=== PATIENT | female | born 1980 | race Asian ===

== ENCOUNTER 2021-11-02 23:38 | Inpatient (IN) | payer OTHER, MEDICAID ==
[~2021-11-02] VITALS: Ht 162.6 cm; Wt 70.3 kg
[2021-11-03] MEDS ORDERED: HTN MED PO (00:12)
[2021-11-03] MEDS ORDERED: ATOR10TA84 PO (00:12)
[2021-11-03 00:24] LABS: BASOPHILS % (AUTO) 0.5 % (0.0-2.0); EOSINOPHILS % (AUTO) 0.6 % (1.0-6.0); HEMATOCRIT 37.8 % (36-46); HEMOGLOBIN 12.3 g/dL (12.0-16.0); LYMPHOCYTES # (AUTO) 2.2 K/uL (1.0-4.8); LYMPHOCYTES % (AUTO) 17.4 % (22.0-44.0); MEAN CORPUSCULAR HEMOGLOBIN 26.4 pg (26.0-34.0); MEAN CORPUSCULAR HGB CONC 32.6 G/dL (31.0-37.0); MEAN CORPUSCULAR VOLUME 81 fL (80-100); MONOCYTES % (AUTO) 7.7 % (2.0-9.0); NEUTROPHILS # (AUTO) 9.3 K/uL (1.8-7.7); NEUTROPHILS % (AUTO) 73.8 % (40.0-70.0); PLATELET COUNT (AUTO) 344 K/uL (150-450); RED BLOOD CELL COUNT(AUTO) 4.68 MIL/uL (4.00-5.20); RED CELL DISTRIBUTION WIDTH 14.4 % (11.5-14.5)
[2021-11-03 00:33] LABS: ANION GAP 8 mmol/L (8-16); CALCIUM, TOTAL 8.6 mg/dL (8.8-10.5); CARBON DIOXIDE 25 mmol/L (22-29); CHLORIDE 106 mmol/L (98-107); GLUCOSE,RANDOM 125 mg/dL (70-110); POTASSIUM 3.6 mmol/L (3.5-5.1); SODIUM SERUM 139 mmol/L (136-145); UREA NITROGEN, BLOOD 12 mg/dL (7-18)
[2021-11-03 00:44] LABS: ALANINE AMINOTRANSFERASE 82 U/L (12-78); ALBUMIN 3.6 g/dL (3.4-5.0); ALKALINE PHOSPHATASE 74 U/L (46-116); ASPARTATE AMINOTRANSFERASE 95 U/L (15-37); BILIRUBIN,TOTAL 0.4 mg/dL (0.1-1.0); HCG,QUANTITATIVE < 1 mIU/mL (0-6); TOTAL PROTEIN, SERUM 7.6 g/dL (6.4-8.2)
[2021-11-03 00:50] LABS: GLOMERULAR FILTR. RATE CALC > 60 mL/min (>60)
[2021-11-03 00:51] LABS: GLUCOSE,POINT OF CARE 113 MG/DL (70-110)
[2021-11-03] MEDS ORDERED: LORazepam 1 MG TABLET PO ONE (01:00)
[2021-11-03] MEDS ORDERED: HALOPERIDOL 5 MG TABLET PO ONE (01:00)
[2021-11-03] MEDS ORDERED: DiphenhydrAMINE HCL 50 MG/ML VIAL ONE (01:22)
[2021-11-03] MEDS ORDERED: HALOPERIDOL LACTATE 5 MG/ML VIAL ONE (01:22)
[2021-11-03] MEDS ORDERED: DiphenhydrAMINE HCL 50 MG/ML VIAL IM ONE (01:30)
[2021-11-03] MEDS ORDERED: HALOPERIDOL LACTATE 5 MG/ML VIAL IM ONE (01:30)
[2021-11-03] MEDS ORDERED: LORazepam 2 MG/ML VIAL IM ONE (01:30)
[2021-11-03 01:53] LABS: AMPHET/METH SCREEN,URINE POSITIVE (NEGATIVE); BARBITURATE SCREEN, URINE NEGATIVE (NEGATIVE); BENZODIAZEPINES SCREEN,URINE NEGATIVE (NEGATIVE); CANNABINOID SCREEN,URINE POSITIVE (NEGATIVE); COCAINE SCREEN,URINE NEGATIVE (NEGATIVE); METHADONE SCREEN, URINE NEGATIVE (NEGATIVE); OPIATE SCREEN,URINE NEGATIVE (NEGATIVE); PHENCYCLIDINE SCREEN,URINE NEGATIVE (NEGATIVE)
[2021-11-03 07:17] LABS: COVID AG,FIA SOURCE NASAL SWAB
[2021-11-03] MEDS ORDERED: ZOLPIDEM TARTRATE 10 MG TABLET PO PRN (07:30)
[2021-11-03 10:39] VITALS: BP 138/86
[2021-11-03 11:24] LABS: APPEARANCE,URINE TURBID (CLEAR); BILIRUBIN,URINE NEGATIVE (NEGATIVE); GLUCOSE, URINE (UA) NEGATIVE (NEGATIVE); KETONES,URINE TRACE mg/dL (NEGATIVE); LEUKOCYTE ESTERASE ,URINE SMALL (NEGATIVE); NITRATE,URINE NEGATIVE (NEGATIVE); OCCULT BLOOD,URINE NEGATIVE (NEGATIVE); PH,URINE 5.5 (5.0-8.0); PROTEIN,URINE 30-70 mg/dL (NEGATIVE); UROBILINOGEN,URINE <=1.0 mg/dL (<=1.0)
[2021-11-03 11:32] LABS: BACTERIA,URINE None Seen /HPF (None Seen); RBC,URINE None Seen /HPF (0-2); WBC,URINE 0-2 /HPF (0-5)
[2021-11-03 11:33] LABS: AMORPHOUS SEDIMENT,UR Many /LPF (None Seen)
[2021-11-03 23:47] VITALS: BP 130/79
[2021-11-04] MEDS ORDERED: PNEUMOCOCCAL VACCINE POLYVALENT 0.5 ML VIAL [PPSV23] IM. ONE (04:15)
[2021-11-04] MEDS ORDERED: PETROLATUM,WHITE 28 GM JELLY TP PRN (06:30)
[2021-11-04] MEDS ORDERED: CloNIDine HCL 0.1 MG TABLET PO PRN (06:30)
[2021-11-04] MEDS ORDERED: MAG HYDROX/AL HYDROX/SIMETH ES 30 ML SUSPENSION UDCUP PO PRN (06:30)
[2021-11-04] MEDS ORDERED: MAGNESIUM HYDROXIDE SUSPENSION 30 ML UDCUP PO PRN (06:30)
[2021-11-04] MEDS ORDERED: ACETAMINOPHEN 325 MG TABLET PO PRN (06:30)
[2021-11-04] MEDS ORDERED: ALBUTEROL SULFATE HFA 90 MCG/PUFF 8 GM INHALER IH PRN (06:30)
[2021-11-04] MEDS ORDERED: LOPERAMIDE HCL 2 MG CAPSULE PO PRN (06:30)
[2021-11-04] MEDS ORDERED: BENZOCAINE/MENTHOL LOZENGE PO PRN (06:30)
[2021-11-04] MEDS ORDERED: OMEPRAZOLE 20 MG CAPSULE PO PRN (06:30)
[2021-11-04] MEDS ORDERED: DOCUSATE SODIUM 100 MG CAPSULE PO PRN (06:30)
[2021-11-04] MEDS ORDERED: BACITRACIN 28 GM OINTMENT TP PRN (06:30)
[2021-11-04] MEDS ORDERED: ONDANSETRON HCL 4 MG TABLET PO PRN (06:30)
[2021-11-04 08:00] VITALS: BP 147/90
[2021-11-04] MEDS: LISINOPRIL 10 MG TABLET PO SCH (09:17)
[2021-11-04] MEDS: ATORVASTATIN CALCIUM 10 MG TABLET PO SCH (09:17)
[2021-11-04] MEDS: LORazepam 2 MG TABLET PO PRN (14:38)
[2021-11-04 20:00] VITALS: BP 136/75
[2021-11-05] MEDS: LORazepam 2 MG TABLET PO PRN ×2 (02:06→08:12)
[2021-11-05 06:56] LABS: BASOPHILS % (AUTO) 0.4 % (0.0-2.0); EOSINOPHILS % (AUTO) 2.2 % (1.0-6.0); HEMATOCRIT 38.8 % (36-46); HEMOGLOBIN 12.8 g/dL (12.0-16.0); LYMPHOCYTES # (AUTO) 3.1 K/uL (1.0-4.8); LYMPHOCYTES % (AUTO) 28.9 % (22.0-44.0); MEAN CORPUSCULAR HEMOGLOBIN 26.6 pg (26.0-34.0); MEAN CORPUSCULAR HGB CONC 32.9 G/dL (31.0-37.0); MEAN CORPUSCULAR VOLUME 81 fL (80-100); MONOCYTES # (AUTO) 0.6 K/uL (0.1-1.0); MONOCYTES % (AUTO) 5.9 % (2.0-9.0); NEUTROPHILS # (AUTO) 6.7 K/uL (1.8-7.7); NEUTROPHILS % (AUTO) 62.6 % (40.0-70.0); PLATELET COUNT (AUTO) 335 K/uL (150-450); RED BLOOD CELL COUNT(AUTO) 4.79 MIL/uL (4.00-5.20); RED CELL DISTRIBUTION WIDTH 14.7 % (11.5-14.5)
[2021-11-05 07:28] LABS: ALANINE AMINOTRANSFERASE 62 U/L (12-78); ALBUMIN 3.1 g/dL (3.4-5.0); ALKALINE PHOSPHATASE 66 U/L (46-116); ANION GAP 10 mmol/L (8-16); ASPARTATE AMINOTRANSFERASE 39 U/L (15-37); BILIRUBIN,TOTAL 0.2 mg/dL (0.1-1.0); CALCIUM, TOTAL 8.5 mg/dL (8.8-10.5); CARBON DIOXIDE 27 mmol/L (22-29); CHLORIDE 102 mmol/L (98-107); CHOL/HDL RATIO 2.1 (3.9-5.7); CHOLESTEROL 115 mg/dL (131-200); CREATININE 0.63 mg/dL (0.60-1.30); GLUCOSE,RANDOM 104 mg/dL (70-110); HDL CHOLESTEROL 55 mg/dL (40-60); PHOSPHORUS 3.6 mg/dL (2.5-4.9); POTASSIUM 4.2 mmol/L (3.5-5.1); SODIUM SERUM 139 mmol/L (136-145); THYROID STIMULATING HORMONE 0.48 uIU/mL (0.36-3.74); TOTAL PROTEIN, SERUM 6.4 g/dL (6.4-8.2); UREA NITROGEN, BLOOD 9 mg/dL (7-18)
[2021-11-05 07:54] LABS: GLOMERULAR FILTR. RATE CALC > 60 mL/min (>60); LDL CHOL (CALC.) 49 mg/dL (0-130); TRIGLYCERIDES 54 mg/dL (15-150)
[2021-11-05] MEDS: HALOPERIDOL 5 MG TABLET PO PRN (08:12)
[2021-11-05] MEDS: NICOTINE 21 MG/24 HOUR PATCH TD SCH (08:12)
[2021-11-05] MEDS: LISINOPRIL 10 MG TABLET PO SCH (08:12)
[2021-11-05] MEDS: ATORVASTATIN CALCIUM 10 MG TABLET PO SCH (08:12)
[2021-11-05 09:07] VITALS: BP 137/86
[2021-11-05] MEDS: RisperiDONE 0.5 MG TABLET PO SCH ×2 (12:08→16:41)
[2021-11-05] MEDS: IBUPROFEN 600 MG TABLET PO PRN (20:14)
[2021-11-06 06:39] VITALS: BP 134/78
[2021-11-06] MEDS: LISINOPRIL 10 MG TABLET PO SCH (08:18)
[2021-11-06] MEDS: ATORVASTATIN CALCIUM 10 MG TABLET PO SCH (08:18)
[2021-11-06] MEDS: LORazepam 2 MG TABLET PO PRN (08:18)
[2021-11-06] MEDS: HALOPERIDOL 5 MG TABLET PO PRN (08:18)
[2021-11-06] MEDS: RisperiDONE 0.5 MG TABLET PO SCH ×2 (08:18→17:28)
[2021-11-06] MEDS: NICOTINE 21 MG/24 HOUR PATCH TD SCH (08:18)
[2021-11-06 10:22] VITALS: BP 150/84
[2021-11-06 20:40] VITALS: BP 143/79
[2021-11-07 06:02] VITALS: BP 137/80
[2021-11-07] MEDS: IBUPROFEN 600 MG TABLET PO PRN (07:16)
[2021-11-07] MEDS: LISINOPRIL 10 MG TABLET PO SCH (08:15)
[2021-11-07] MEDS: ATORVASTATIN CALCIUM 10 MG TABLET PO SCH (08:15)
[2021-11-07] MEDS: NICOTINE 21 MG/24 HOUR PATCH TD SCH (08:15)
[2021-11-07] MEDS: RisperiDONE 0.5 MG TABLET PO SCH ×2 (08:35→16:17)
[2021-11-07 09:21] VITALS: BP 172/96
[2021-11-07] MEDS: LORazepam 2 MG TABLET PO PRN (15:48)
[2021-11-07] MEDS ORDERED: DiphenhydrAMINE HCL 50 MG/ML VIAL IM ONE (16:30)
[2021-11-07] MEDS ORDERED: HALOPERIDOL LACTATE 5 MG/ML VIAL IM ONE (16:30)
[2021-11-07] MEDS ORDERED: LORazepam 2 MG/ML VIAL IM ONE (16:30)
[2021-11-07 20:12] VITALS: BP 119/77
[2021-11-08 06:14] VITALS: BP 151/79
[2021-11-08] MEDS: DIVALPROEX SODIUM 500 MG DR TABLET PO SCH ×2 (09:05→20:14)
[2021-11-08] MEDS: LITHIUM CARBONATE 300 MG CAPSULE PO SCH ×2 (09:05→16:26)
[2021-11-08] MEDS: ATORVASTATIN CALCIUM 10 MG TABLET PO SCH (09:06)
[2021-11-08] MEDS: LISINOPRIL 10 MG TABLET PO SCH (09:06)
[2021-11-08] MEDS: NICOTINE 21 MG/24 HOUR PATCH TD SCH (09:06)
[2021-11-08] MEDS: RisperiDONE 3 MG TABLET PO SCH ×2 (09:06→16:26)
[2021-11-08] MEDS ORDERED: HALOPERIDOL LACTATE 5 MG/ML VIAL IM ONE (09:30)
[2021-11-08] MEDS ORDERED: LORazepam 2 MG/ML VIAL IM ONE (09:30)
[2021-11-08] MEDS ORDERED: DiphenhydrAMINE HCL 50 MG/ML VIAL IM ONE (09:30)
[2021-11-08 11:32] VITALS: BP 167/92
[2021-11-08 21:58] VITALS: BP 116/73
[2021-11-09 08:00] VITALS: BP 101/62
[2021-11-09] MEDS: NICOTINE 21 MG/24 HOUR PATCH TD SCH (08:48)
[2021-11-09] MEDS: ATORVASTATIN CALCIUM 10 MG TABLET PO SCH (08:49)
[2021-11-09] MEDS: LITHIUM CARBONATE 300 MG CAPSULE PO SCH ×2 (08:49→16:11)
[2021-11-09] MEDS: DIVALPROEX SODIUM 500 MG DR TABLET PO SCH ×2 (08:49→20:06)
[2021-11-09] MEDS: RisperiDONE 3 MG TABLET PO SCH ×2 (08:49→16:11)
[2021-11-09] MEDS: LISINOPRIL 10 MG TABLET PO SCH (08:50)
[2021-11-09] MEDS: LORazepam 2 MG TABLET PO PRN (17:01)
[2021-11-09] MEDS ORDERED: HALOPERIDOL LACTATE 5 MG/ML VIAL ONE (18:04)
[2021-11-09] MEDS ORDERED: DiphenhydrAMINE HCL 50 MG/ML VIAL ONE (18:04)
[2021-11-09] MEDS ORDERED: LORazepam 2 MG/ML VIAL ONE (18:04)
[2021-11-09] MEDS ORDERED: DiphenhydrAMINE HCL 50 MG/ML VIAL IM ONE (18:30)
[2021-11-09] MEDS ORDERED: HALOPERIDOL LACTATE 5 MG/ML VIAL IM ONE (18:30)
[2021-11-09] MEDS ORDERED: LORazepam 2 MG/ML VIAL IM ONE (18:30)
[2021-11-09 18:55] VITALS: BP 125/74
[2021-11-09] MEDS: IBUPROFEN 600 MG TABLET PO PRN (18:58)
[2021-11-09 20:33] VITALS: BP 130/75
[2021-11-10] MEDS: ATORVASTATIN CALCIUM 10 MG TABLET PO SCH (08:38)
[2021-11-10] MEDS: DIVALPROEX SODIUM 500 MG DR TABLET PO SCH ×2 (08:38→21:03)
[2021-11-10] MEDS: LITHIUM CARBONATE 300 MG CAPSULE PO SCH ×2 (08:38→16:15)
[2021-11-10] MEDS: RisperiDONE 3 MG TABLET PO SCH ×2 (09:58→16:15)
[2021-11-10] MEDS: LISINOPRIL 10 MG TABLET PO SCH (09:59)
[2021-11-10] MEDS: NICOTINE 21 MG/24 HOUR PATCH TD SCH (10:00)
[2021-11-10] MEDS: LORazepam 2 MG TABLET PO PRN (16:15)
[2021-11-10 20:13] VITALS: BP 102/68
[2021-11-11 08:18] VITALS: BP 106/69
[2021-11-11] MEDS: NICOTINE 21 MG/24 HOUR PATCH TD SCH (09:00)
[2021-11-11] MEDS: ATORVASTATIN CALCIUM 10 MG TABLET PO SCH (09:21)
[2021-11-11] MEDS: LISINOPRIL 10 MG TABLET PO SCH (09:21)
[2021-11-11] MEDS: RisperiDONE 3 MG TABLET PO SCH ×2 (09:21→17:13)
[2021-11-11] MEDS: LITHIUM CARBONATE 300 MG CAPSULE PO SCH ×2 (09:21→17:14)
[2021-11-11] MEDS: LORazepam 2 MG TABLET PO PRN ×2 (09:21→14:25)
[2021-11-11] MEDS: DIVALPROEX SODIUM 500 MG DR TABLET PO SCH ×2 (09:22→21:28)
[2021-11-11 11:41] LABS: GLUCOMETER DEV NAME(LOC) POC.BV
[2021-11-11] MEDS: IBUPROFEN 600 MG TABLET PO PRN (14:26)
[2021-11-12] MEDS: NICOTINE 21 MG/24 HOUR PATCH TD SCH (08:14)
[2021-11-12] MEDS: RisperiDONE 3 MG TABLET PO SCH ×2 (08:14→16:12)
[2021-11-12] MEDS: LITHIUM CARBONATE 300 MG CAPSULE PO SCH ×2 (08:14→16:12)
[2021-11-12] MEDS: DIVALPROEX SODIUM 500 MG DR TABLET PO SCH ×2 (08:15→20:04)
[2021-11-12] MEDS: ATORVASTATIN CALCIUM 10 MG TABLET PO SCH (08:15)
[2021-11-12] MEDS: LISINOPRIL 10 MG TABLET PO SCH (08:15)
[2021-11-12 08:34] VITALS: BP 110/64
[2021-11-12 14:01] LABS: LITHIUM 0.88 mmol/L (0.60-1.20)
[2021-11-12 22:25] VITALS: BP 116/73
[2021-11-13] MEDS: DIVALPROEX SODIUM 500 MG DR TABLET PO SCH ×2 (08:24→20:16)
[2021-11-13] MEDS: RisperiDONE 3 MG TABLET PO SCH ×2 (08:24→16:01)
[2021-11-13] MEDS: LITHIUM CARBONATE 300 MG CAPSULE PO SCH ×2 (08:25→16:01)
[2021-11-13] MEDS: LISINOPRIL 10 MG TABLET PO SCH (08:25)
[2021-11-13] MEDS: ATORVASTATIN CALCIUM 10 MG TABLET PO SCH (08:25)
[2021-11-13] MEDS: NICOTINE 21 MG/24 HOUR PATCH TD SCH (08:26)
[2021-11-13 09:00] VITALS: BP 113/67
[2021-11-14] MEDS ORDERED: RISP3TAB63 PO (00:52)
[2021-11-14] MEDS ORDERED: DIVA-112 PO (00:52)
[2021-11-14] MEDS ORDERED: LITH300C3 PO (00:52)
[2021-11-14 04:42] VITALS: BP 99/65
[2021-11-14 08:14] VITALS: BP 118/73
[2021-11-14] MEDS: LISINOPRIL 10 MG TABLET PO SCH (08:33)
[2021-11-14] MEDS: RisperiDONE 3 MG TABLET PO SCH (08:33)
[2021-11-14] MEDS: DIVALPROEX SODIUM 500 MG DR TABLET PO SCH (08:33)
[2021-11-14] MEDS: ATORVASTATIN CALCIUM 10 MG TABLET PO SCH (08:33)
[2021-11-14] MEDS: LITHIUM CARBONATE 300 MG CAPSULE PO SCH (08:33)
[2021-11-14] MEDS: NICOTINE 21 MG/24 HOUR PATCH TD SCH (08:34)
[2021-11-14] MEDS ORDERED: LISI10TA24 PO ×2 (13:11→13:13)
[2021-11-14] MEDS ORDERED: ATOR10TA84 PO (13:13)
== END 2021-11-14 15:40 | disposition home or self-care (01) | DRG 885 ==
LOC: EMS 23:41 → B3A 11-03 10:11
PROVIDERS: ADMIT Psychiatry & Neurology Psychiatry; ATTEND Psychiatry & Neurology Psychiatry
PROC: 3E0234Z Introduction of Serum, Toxoid and Vaccine into Muscle, Percutaneous Approach (ICD-10-PCS; principal; 2021-11-04)
DX: F20.9 Schizophrenia, unspecified (principal); Z20.822 Contact with and (suspected) exposure to COVID-19; E11.9 Type 2 diabetes mellitus without complications; E78.00 Pure hypercholesterolemia, unspecified; I10 Essential (primary) hypertension; F41.9 Anxiety disorder, unspecified; G47.00 Insomnia, unspecified; K59.00 Constipation, unspecified; R74.01 Elevation of levels of liver transaminase levels; F15.10 Other stimulant abuse, uncomplicated; F12.90 Cannabis use, unspecified, uncomplicated; Z72.0 Tobacco use
CPT/HCPCS: 80053; 80061; 80164; 80178; 81001; 82962; 83735; 84100; 84443; 84702; 85025; 90732; 99285; G0480; J1200; J1630; J2060

== ENCOUNTER 2021-11-16 08:56 | Inpatient (IN) | payer MEDICARE, MEDICAID ==
[~2021-11-16] VITALS: Ht 157.5 cm; Wt 70.0 kg
[~2021-11-16 08:56] MED LIST: ATOR10TA84 PO; DIVA-112 PO; LISI10TA24 PO; LITH300C3 PO; RISP3TAB63 PO
[2021-11-16 09:43] LABS: HEMATOCRIT 34.7 % (36-46); HEMOGLOBIN 11.2 g/dL (12.0-16.0); MEAN CORPUSCULAR HEMOGLOBIN 26.2 pg (26.0-34.0); MEAN CORPUSCULAR HGB CONC 32.2 G/dL (31.0-37.0); MEAN CORPUSCULAR VOLUME 81 fL (80-100); RED BLOOD CELL COUNT(AUTO) 4.27 MIL/uL (4.00-5.20); RED CELL DISTRIBUTION WIDTH 14.3 % (11.5-14.5)
[2021-11-16 09:44] LABS: BASOPHILS % (AUTO) 0.4 % (0.0-2.0); EOSINOPHILS % (AUTO) 1.7 % (1.0-6.0); LYMPHOCYTES # (AUTO) 2.6 K/uL (1.0-4.8); LYMPHOCYTES % (AUTO) 17.5 % (22.0-44.0); MONOCYTES # (AUTO) 1.2 K/uL (0.1-1.0); MONOCYTES % (AUTO) 7.8 % (2.0-9.0); NEUTROPHILS # (AUTO) 10.9 K/uL (1.8-7.7); NEUTROPHILS % (AUTO) 72.6 % (40.0-70.0); PLATELET COUNT (AUTO) 239 K/uL (150-450)
[2021-11-16 10:00] LABS: ANION GAP 11 mmol/L (8-16); CALCIUM, TOTAL 8.8 mg/dL (8.8-10.5); CARBON DIOXIDE 25 mmol/L (22-29); CHLORIDE 101 mmol/L (98-107); CREATININE 0.96 mg/dL (0.60-1.30); GLUCOSE,RANDOM 105 mg/dL (70-110); POTASSIUM 4.2 mmol/L (3.5-5.1); SODIUM SERUM 137 mmol/L (136-145); UREA NITROGEN, BLOOD 13 mg/dL (7-18)
[2021-11-16 10:01] LABS: GLOMERULAR FILTR. RATE CALC > 60 mL/min (>60)
[2021-11-16 10:06] LABS: ALANINE AMINOTRANSFERASE 24 U/L (12-78); ALKALINE PHOSPHATASE 62 U/L (46-116); ASPARTATE AMINOTRANSFERASE 28 U/L (15-37); BILIRUBIN,TOTAL 0.3 mg/dL (0.1-1.0); TOTAL PROTEIN, SERUM 6.9 g/dL (6.4-8.2)
[2021-11-16 10:45] LABS: AMPHET/METH SCREEN,URINE POSITIVE (NEGATIVE); BARBITURATE SCREEN, URINE NEGATIVE (NEGATIVE); BENZODIAZEPINES SCREEN,URINE NEGATIVE (NEGATIVE); CANNABINOID SCREEN,URINE POSITIVE (NEGATIVE); COCAINE SCREEN,URINE NEGATIVE (NEGATIVE); METHADONE SCREEN, URINE NEGATIVE (NEGATIVE); OPIATE SCREEN,URINE NEGATIVE (NEGATIVE)
[2021-11-16 10:49] LABS: PHENCYCLIDINE SCREEN,URINE NEGATIVE (NEGATIVE)
[2021-11-16 11:27] LABS: COVID AG,FIA SOURCE NASAL SWAB
[2021-11-16 18:49] VITALS: BP 121/73
[2021-11-16] MEDS ORDERED: PETROLATUM,WHITE 28 GM JELLY TP PRN (20:15)
[2021-11-16] MEDS ORDERED: MAGNESIUM HYDROXIDE SUSPENSION 30 ML UDCUP PO PRN (20:15)
[2021-11-16] MEDS ORDERED: BENZOCAINE/MENTHOL LOZENGE PO PRN (20:15)
[2021-11-16] MEDS ORDERED: BACITRACIN 28 GM OINTMENT TP PRN (20:15)
[2021-11-16] MEDS ORDERED: LOPERAMIDE HCL 2 MG CAPSULE PO PRN (20:15)
[2021-11-16] MEDS ORDERED: CloNIDine HCL 0.1 MG TABLET PO PRN (20:15)
[2021-11-16] MEDS ORDERED: ONDANSETRON HCL 4 MG TABLET PO PRN (20:15)
[2021-11-16] MEDS ORDERED: ALBUTEROL SULFATE HFA 90 MCG/PUFF 8 GM INHALER IH PRN (20:15)
[2021-11-16] MEDS ORDERED: ACETAMINOPHEN 325 MG TABLET PO PRN (20:15)
[2021-11-16] MEDS ORDERED: MAG HYDROX/AL HYDROX/SIMETH ES 30 ML SUSPENSION UDCUP PO PRN (20:15)
[2021-11-16] MEDS ORDERED: -PHARMACY VACCINE NOTE- MISC ONE (20:30)
[2021-11-16] MEDS: DIVALPROEX SODIUM 500 MG DR TABLET PO SCH (21:04)
[2021-11-17] MEDS: LISINOPRIL 10 MG TABLET PO SCH (08:37)
[2021-11-17] MEDS: OMEPRAZOLE 20 MG CAPSULE PO SCH (08:37)
[2021-11-17] MEDS: DIVALPROEX SODIUM 500 MG DR TABLET PO SCH ×2 (08:37→21:44)
[2021-11-17] MEDS: ATORVASTATIN CALCIUM 10 MG TABLET PO SCH (08:37)
[2021-11-17] MEDS: DOCUSATE SODIUM 100 MG CAPSULE PO SCH (08:38)
[2021-11-17 08:41] VITALS: BP 113/66
[2021-11-17] MEDS: HALOPERIDOL 5 MG TABLET PO PRN (10:34)
[2021-11-17] MEDS: LORazepam 2 MG TABLET PO PRN (10:34)
[2021-11-17] MEDS: LITHIUM CARBONATE 300 MG CAPSULE PO SCH (16:51)
[2021-11-17] MEDS: RisperiDONE 3 MG TABLET PO SCH (16:52)
[2021-11-17 21:30] VITALS: BP 118/70
[2021-11-18 08:10] VITALS: BP 114/69
[2021-11-18] MEDS: DOCUSATE SODIUM 100 MG CAPSULE PO SCH (09:23)
[2021-11-18] MEDS: OMEPRAZOLE 20 MG CAPSULE PO SCH (09:23)
[2021-11-18] MEDS: RisperiDONE 3 MG TABLET PO SCH ×2 (09:23→16:42)
[2021-11-18] MEDS: DIVALPROEX SODIUM 500 MG DR TABLET PO SCH ×2 (09:23→20:14)
[2021-11-18] MEDS: LISINOPRIL 10 MG TABLET PO SCH (09:23)
[2021-11-18] MEDS: ATORVASTATIN CALCIUM 10 MG TABLET PO SCH (09:23)
[2021-11-18] MEDS: LITHIUM CARBONATE 300 MG CAPSULE PO SCH ×2 (09:23→16:43)
[2021-11-18] MEDS: LORazepam 2 MG TABLET PO PRN (09:23)
[2021-11-18 16:23] VITALS: BP 112/74
[2021-11-19 08:30] VITALS: BP 130/83
[2021-11-19] MEDS: DIVALPROEX SODIUM 500 MG DR TABLET PO SCH ×2 (08:36→20:29)
[2021-11-19] MEDS: LORazepam 2 MG TABLET PO PRN (08:36)
[2021-11-19] MEDS: OMEPRAZOLE 20 MG CAPSULE PO SCH (08:36)
[2021-11-19] MEDS: LITHIUM CARBONATE 300 MG CAPSULE PO SCH ×2 (08:36→16:36)
[2021-11-19] MEDS: RisperiDONE 3 MG TABLET PO SCH ×2 (08:36→16:36)
[2021-11-19] MEDS: DOCUSATE SODIUM 100 MG CAPSULE PO SCH (08:37)
[2021-11-19] MEDS: LISINOPRIL 10 MG TABLET PO SCH (08:37)
[2021-11-19] MEDS: ATORVASTATIN CALCIUM 10 MG TABLET PO SCH (08:37)
[2021-11-19] MEDS: HALOPERIDOL 5 MG TABLET PO PRN (09:15)
[2021-11-19] MEDS: IBUPROFEN 600 MG TABLET PO PRN (09:15)
[2021-11-19 16:13] VITALS: BP 105/65
[2021-11-20] MEDS: RisperiDONE 3 MG TABLET PO SCH ×2 (08:29→16:18)
[2021-11-20] MEDS: DIVALPROEX SODIUM 500 MG DR TABLET PO SCH ×2 (08:29→20:09)
[2021-11-20] MEDS: IBUPROFEN 600 MG TABLET PO PRN (08:29)
[2021-11-20] MEDS: LITHIUM CARBONATE 300 MG CAPSULE PO SCH ×2 (08:30→16:19)
[2021-11-20] MEDS: ATORVASTATIN CALCIUM 10 MG TABLET PO SCH (08:30)
[2021-11-20] MEDS: OMEPRAZOLE 20 MG CAPSULE PO SCH (08:30)
[2021-11-20] MEDS: DOCUSATE SODIUM 100 MG CAPSULE PO SCH (08:30)
[2021-11-20] MEDS: LISINOPRIL 10 MG TABLET PO SCH (08:30)
[2021-11-20 16:05] VITALS: BP 106/69
[2021-11-20] MEDS: LORazepam 2 MG TABLET PO PRN ×2 (19:19→23:47)
[2021-11-20] MEDS: ZOLPIDEM TARTRATE 10 MG TABLET PO PRN (23:47)
[2021-11-21] MEDS: LITHIUM CARBONATE 300 MG CAPSULE PO SCH ×2 (08:09→16:46)
[2021-11-21] MEDS: ATORVASTATIN CALCIUM 10 MG TABLET PO SCH (08:09)
[2021-11-21] MEDS: OMEPRAZOLE 20 MG CAPSULE PO SCH (08:09)
[2021-11-21] MEDS: DIVALPROEX SODIUM 500 MG DR TABLET PO SCH ×2 (08:09→20:14)
[2021-11-21] MEDS: DOCUSATE SODIUM 100 MG CAPSULE PO SCH (08:09)
[2021-11-21] MEDS: RisperiDONE 3 MG TABLET PO SCH ×2 (08:09→16:46)
[2021-11-21] MEDS: LISINOPRIL 10 MG TABLET PO SCH (08:10)
[2021-11-21 08:29] VITALS: BP 115/77
[2021-11-21] MEDS: ZOLPIDEM TARTRATE 10 MG TABLET PO PRN (20:21)
[2021-11-22 08:40] VITALS: BP 119/81
[2021-11-22] MEDS: RisperiDONE 3 MG TABLET PO SCH ×2 (09:05→15:59)
[2021-11-22] MEDS: LISINOPRIL 10 MG TABLET PO SCH (09:05)
[2021-11-22] MEDS: DIVALPROEX SODIUM 500 MG DR TABLET PO SCH ×2 (09:05→20:08)
[2021-11-22] MEDS: ATORVASTATIN CALCIUM 10 MG TABLET PO SCH (09:05)
[2021-11-22] MEDS: LITHIUM CARBONATE 300 MG CAPSULE PO SCH ×2 (09:05→15:59)
[2021-11-22] MEDS: DOCUSATE SODIUM 100 MG CAPSULE PO SCH (09:06)
[2021-11-22] MEDS: OMEPRAZOLE 20 MG CAPSULE PO SCH (09:06)
[2021-11-22 12:14] LABS: COVID AG,FIA SOURCE NASOPHARYNGEAL
[2021-11-22 16:05] VITALS: BP 112/66
[2021-11-22] MEDS: ZOLPIDEM TARTRATE 10 MG TABLET PO PRN (21:35)
[2021-11-23 08:18] VITALS: BP 109/68
[2021-11-23] MEDS: RisperiDONE 3 MG TABLET PO SCH ×2 (09:18→16:10)
[2021-11-23] MEDS: LISINOPRIL 10 MG TABLET PO SCH (09:18)
[2021-11-23] MEDS: LITHIUM CARBONATE 300 MG CAPSULE PO SCH ×2 (09:18→16:10)
[2021-11-23] MEDS: ATORVASTATIN CALCIUM 10 MG TABLET PO SCH (09:18)
[2021-11-23] MEDS: DIVALPROEX SODIUM 500 MG DR TABLET PO SCH ×2 (09:18→20:03)
[2021-11-23] MEDS: OMEPRAZOLE 20 MG CAPSULE PO SCH (09:20)
[2021-11-23] MEDS: DOCUSATE SODIUM 100 MG CAPSULE PO SCH (09:20)
[2021-11-23 16:22] VITALS: BP 109/76
[2021-11-23] MEDS: HALOPERIDOL 5 MG TABLET PO PRN (16:59)
[2021-11-23] MEDS: LORazepam 2 MG TABLET PO PRN (16:59)
[2021-11-24] MEDS: OMEPRAZOLE 20 MG CAPSULE PO SCH (08:30)
[2021-11-24] MEDS: RisperiDONE 3 MG TABLET PO SCH ×2 (08:30→16:17)
[2021-11-24] MEDS: DIVALPROEX SODIUM 500 MG DR TABLET PO SCH ×2 (08:30→20:39)
[2021-11-24] MEDS: ATORVASTATIN CALCIUM 10 MG TABLET PO SCH (08:30)
[2021-11-24] MEDS: DOCUSATE SODIUM 100 MG CAPSULE PO SCH (08:30)
[2021-11-24] MEDS: LISINOPRIL 10 MG TABLET PO SCH (08:30)
[2021-11-24] MEDS: LITHIUM CARBONATE 300 MG CAPSULE PO SCH ×2 (08:30→16:17)
[2021-11-24 09:43] VITALS: BP 110/72
[2021-11-24] MEDS: HALOPERIDOL 5 MG TABLET PO PRN (16:24)
[2021-11-24] MEDS: LORazepam 2 MG TABLET PO PRN (16:24)
[2021-11-24 16:45] VITALS: BP 112/72
[2021-11-25 08:17] VITALS: BP 153/83
[2021-11-25] MEDS: LORazepam 2 MG TABLET PO PRN (08:18)
[2021-11-25] MEDS: ATORVASTATIN CALCIUM 10 MG TABLET PO SCH (08:18)
[2021-11-25] MEDS: RisperiDONE 3 MG TABLET PO SCH ×2 (08:18→16:35)
[2021-11-25] MEDS: LITHIUM CARBONATE 300 MG CAPSULE PO SCH ×2 (08:18→16:34)
[2021-11-25] MEDS: DOCUSATE SODIUM 100 MG CAPSULE PO SCH (08:18)
[2021-11-25] MEDS: DIVALPROEX SODIUM 500 MG DR TABLET PO SCH ×2 (08:18→20:21)
[2021-11-25] MEDS: OMEPRAZOLE 20 MG CAPSULE PO SCH (08:18)
[2021-11-25] MEDS: LISINOPRIL 10 MG TABLET PO SCH (08:18)
[2021-11-25 16:04] VITALS: BP 110/75
[2021-11-26 00:26] VITALS: BP 118/76
[2021-11-26] MEDS: OMEPRAZOLE 20 MG CAPSULE PO SCH (08:12)
[2021-11-26] MEDS: LISINOPRIL 10 MG TABLET PO SCH (08:12)
[2021-11-26] MEDS: LITHIUM CARBONATE 300 MG CAPSULE PO SCH ×2 (08:12→17:54)
[2021-11-26] MEDS: DIVALPROEX SODIUM 500 MG DR TABLET PO SCH ×2 (08:12→20:06)
[2021-11-26] MEDS: DOCUSATE SODIUM 100 MG CAPSULE PO SCH (08:12)
[2021-11-26] MEDS: RisperiDONE 3 MG TABLET PO SCH ×2 (08:12→17:54)
[2021-11-26] MEDS: ATORVASTATIN CALCIUM 10 MG TABLET PO SCH (08:13)
[2021-11-26 08:54] VITALS: BP 114/76
[2021-11-26] MEDS: LORazepam 2 MG TABLET PO PRN (12:24)
[2021-11-26] MEDS: HALOPERIDOL 5 MG TABLET PO PRN (12:24)
[2021-11-26 16:08] VITALS: BP 133/88
[2021-11-27] MEDS: DIVALPROEX SODIUM 500 MG DR TABLET PO SCH ×2 (08:29→21:04)
[2021-11-27] MEDS: ATORVASTATIN CALCIUM 10 MG TABLET PO SCH (08:29)
[2021-11-27] MEDS: RisperiDONE 3 MG TABLET PO SCH ×2 (08:29→16:11)
[2021-11-27] MEDS: HALOPERIDOL 5 MG TABLET PO PRN ×2 (08:29→16:11)
[2021-11-27] MEDS: LISINOPRIL 10 MG TABLET PO SCH (08:29)
[2021-11-27] MEDS: LITHIUM CARBONATE 300 MG CAPSULE PO SCH ×2 (08:29→16:11)
[2021-11-27] MEDS: LORazepam 2 MG TABLET PO PRN (08:29)
[2021-11-27] MEDS: OMEPRAZOLE 20 MG CAPSULE PO SCH (08:29)
[2021-11-27] MEDS: DOCUSATE SODIUM 100 MG CAPSULE PO SCH (08:30)
[2021-11-27 08:34] VITALS: BP 100/58
[2021-11-27 16:02] VITALS: BP 102/68
[2021-11-28] MEDS: DOCUSATE SODIUM 100 MG CAPSULE PO SCH (08:16)
[2021-11-28] MEDS: ATORVASTATIN CALCIUM 10 MG TABLET PO SCH (08:16)
[2021-11-28] MEDS: LISINOPRIL 10 MG TABLET PO SCH (08:16)
[2021-11-28] MEDS: LORazepam 2 MG TABLET PO PRN ×2 (08:16→16:53)
[2021-11-28] MEDS: DIVALPROEX SODIUM 500 MG DR TABLET PO SCH ×2 (08:16→20:17)
[2021-11-28] MEDS: LITHIUM CARBONATE 300 MG CAPSULE PO SCH ×2 (08:16→15:57)
[2021-11-28] MEDS: RisperiDONE 3 MG TABLET PO SCH ×2 (08:17→15:57)
[2021-11-28] MEDS: OMEPRAZOLE 20 MG CAPSULE PO SCH (08:17)
[2021-11-28 08:28] VITALS: BP 114/71
[2021-11-28] MEDS: HALOPERIDOL 5 MG TABLET PO PRN (15:57)
[2021-11-28 16:01] VITALS: BP 105/79
[2021-11-28 20:17] VITALS: BP 107/77
[2021-11-29 07:06] LABS: COVID AG,FIA SOURCE NASAL SWAB
[2021-11-29 08:06] VITALS: BP 94/66
[2021-11-29] MEDS: OMEPRAZOLE 20 MG CAPSULE PO SCH (10:28)
[2021-11-29] MEDS: ATORVASTATIN CALCIUM 10 MG TABLET PO SCH (10:28)
[2021-11-29] MEDS: DOCUSATE SODIUM 100 MG CAPSULE PO SCH (10:28)
[2021-11-29] MEDS: DIVALPROEX SODIUM 500 MG DR TABLET PO SCH ×2 (10:28→20:29)
[2021-11-29] MEDS: HALOPERIDOL 5 MG TABLET PO PRN (10:28)
[2021-11-29] MEDS: LISINOPRIL 10 MG TABLET PO SCH (10:28)
[2021-11-29] MEDS: LORazepam 2 MG TABLET PO PRN (10:28)
[2021-11-29] MEDS: LITHIUM CARBONATE 300 MG CAPSULE PO SCH ×2 (10:28→16:56)
[2021-11-29] MEDS: RisperiDONE 3 MG TABLET PO SCH ×2 (10:28→16:56)
[2021-11-29 16:54] VITALS: BP 90/64
[2021-11-30] MEDS: DIVALPROEX SODIUM 500 MG DR TABLET PO SCH ×2 (07:29→20:37)
[2021-11-30] MEDS: LISINOPRIL 10 MG TABLET PO SCH (07:29)
[2021-11-30] MEDS: LITHIUM CARBONATE 300 MG CAPSULE PO SCH (07:29)
[2021-11-30] MEDS: RisperiDONE 3 MG TABLET PO SCH ×2 (07:29→16:18)
[2021-11-30] MEDS: ATORVASTATIN CALCIUM 10 MG TABLET PO SCH (07:30)
[2021-11-30] MEDS: OMEPRAZOLE 20 MG CAPSULE PO SCH (07:31)
[2021-11-30] MEDS: DOCUSATE SODIUM 100 MG CAPSULE PO SCH (07:31)
[2021-11-30 08:16] VITALS: BP 109/64
[2021-11-30 08:41] LABS: CHOL/HDL RATIO 2.4 (3.9-5.7); THYROID STIMULATING HORMONE 3.03 uIU/mL (0.36-3.74)
[2021-11-30 08:45] LABS: LITHIUM 0.53 mmol/L (0.60-1.20)
[2021-11-30 08:47] LABS: HEMOGLOBIN A1C 5.9 % (3.8-5.6)
[2021-11-30] MEDS: HALOPERIDOL 5 MG TABLET PO PRN (12:45)
[2021-11-30 16:21] VITALS: BP 133/79
[2021-11-30] MEDS ORDERED: LITHIUM CARBONATE 600 MG CAPSULE PO SCH (21:00)
[2021-12-01] MEDS ORDERED: LITH300C3 PO (08:10)
[2021-12-01] MEDS ORDERED: LITH600C5 PO (08:10)
[2021-12-01] MEDS ORDERED: RISP3TAB35 PO (08:11)
[2021-12-01 08:24] VITALS: BP 103/57
[2021-12-01] MEDS: ATORVASTATIN CALCIUM 10 MG TABLET PO SCH (08:41)
[2021-12-01] MEDS: RisperiDONE 3 MG TABLET PO SCH (08:43)
[2021-12-01] MEDS: DOCUSATE SODIUM 100 MG CAPSULE PO SCH (08:43)
[2021-12-01] MEDS: DIVALPROEX SODIUM 500 MG DR TABLET PO SCH (08:43)
[2021-12-01] MEDS: OMEPRAZOLE 20 MG CAPSULE PO SCH (08:44)
[2021-12-01] MEDS: LISINOPRIL 10 MG TABLET PO SCH (08:44)
[2021-12-01] MEDS ORDERED: ATOR10TA84 PO (08:48)
[2021-12-01] MEDS ORDERED: LITHIUM CARBONATE 300 MG CAPSULE PO SCH (09:00)
[2021-12-01] MEDS ORDERED: ATOR10TA69 PO (10:37)
[2021-12-01] MEDS ORDERED: LISI-893 PO (10:37)
== END 2021-12-01 10:05 | disposition home or self-care (01) | DRG 885 ==
LOC: EMS 08:57 → 3EC 15:18
PROVIDERS: ADMIT Psychiatry & Neurology Psychiatry; ATTEND Psychiatry & Neurology Psychiatry
DX: F25.9 Schizoaffective disorder, unspecified (principal); D72.829 Elevated white blood cell count, unspecified; E11.9 Type 2 diabetes mellitus without complications; Z20.822 Contact with and (suspected) exposure to COVID-19; E78.00 Pure hypercholesterolemia, unspecified; F31.9 Bipolar disorder, unspecified; F41.9 Anxiety disorder, unspecified; I10 Essential (primary) hypertension; F15.10 Other stimulant abuse, uncomplicated; F12.90 Cannabis use, unspecified, uncomplicated; Z72.0 Tobacco use; K59.00 Constipation, unspecified; G47.00 Insomnia, unspecified
CPT/HCPCS: 80053; 80061; 80164; 80178; 82962; 83036; 84443; 85025; 87081; 99285; G0480